=== PATIENT | female | born 1985 | race Caucasian/White ===

== ENCOUNTER 2017-04-06 05:13 | Day surgery (SDC) | payer BC, OTHER ==
[2017-04-05 15:07] VITALS: BMI 36.6
[~2017-04-06 05:13] MED LIST: ceFAZolin SODIUM 1 GM VIAL IVPB ONE
[2017-04-06] MEDS ORDERED: ACETAMINOPHEN 325 MG TABLET (FP) PO PRN (08:07)
[2017-04-06] MEDS ORDERED: IBUPROFEN 800 MG/8 ML IJ IVPB PRN (08:07)
--- NOTE | 2017-04-06 08:08 | HP ---
History & Physical Update - History History: No Change - Physical Physical: No Change - Assessment Assessment: No Change - Plan Plan: No Change (AUB - submucosal leiomyoma - for hysterocopic myomectomy and suction D&C)
[2017-04-06] MEDS ORDERED: PROPOFOL 20 ML ONE (08:13)
[2017-04-06] MEDS ORDERED: KETOROLAC TROMETHAMINE 30 MG/1 ML VIAL ONE (08:13)
[2017-04-06] MEDS ORDERED: LIDOCAINE HCL/PF 2% SDV 5ML VIAL ONE (08:13)
[2017-04-06] MEDS ORDERED: MIDAZOLAM HCL 2 MG/2 ML SINGLE DOSE VIAL ONE (08:13)
[2017-04-06] MEDS ORDERED: LACTATED RINGERS SOLUTION 1,000 ML IV SCH (08:15)
[2017-04-06] MEDS ORDERED: DESFLURANE GAS 240 ML BOTTLE IH ONE (08:33)
[2017-04-06] MEDS ORDERED: DEXAMETHASONE SOD PHOSPHATE 4 MG/1 ML VIAL ONE (08:55)
[2017-04-06] MEDS ORDERED: PROMETHAZINE HCL 25 MG/1 ML VIAL IVPUSH PRN (09:12)
[2017-04-06] MEDS ORDERED: ONDANSETRON 4 MG/2 ML VIAL IVPUSH PRN (09:12)
[2017-04-06] MEDS ORDERED: oxyCODONE HCL 5 MG TABLET PO PRN (09:12)
--- NOTE | 2017-04-06 09:40 | OP ---
Operative Note - Note: Operative Date: 04/06/17 Pre-Operative Diagnosis: AUB, submucosal leiomyoma Operation: hysteroscopic myomectomy and polypectomy, suction D&C Findings: approx 1-2cm intracavitary myoma, posterior uterine polyps Post-Operative Diagnosis: Same as Pre-op (and posterior uterine polyp) Surgeon: Renetta Olivares Anesthesiologist/[employer]: Ender Hernandez Anesthesia: General Specimens Removed: endometrial currettings, endometrial polyp Estimated Blood Loss (mls): 20 Operative Report Dictated: Yes
[2017-04-06] MEDS ORDERED: IBUPROFEN 800 MG/8 ML IJ IVPB ONE (09:57)
--- NOTE | 2017-04-06 10:07 | OP ---
DATE OF OPERATION: 04/06/2017 PREOPERATIVE DIAGNOSIS: Abnormal uterine bleeding and submucosal leiomyoma. POSTOPERATIVE DIAGNOSIS: Abnormal uterine bleeding and submucosal leiomyoma with posterior uterine polyps. PROCEDURE: Hysteroscopic resection of submucosal leiomyoma and posterior uterine polyps and suction dilatation and curettage. SURGEON: Renetta Olivares MD RN GYNECOLOGY: None. ANESTHESIA: General by Ender Hernandez MD ESTIMATED BLOOD LOSS: 20 mL. COMPLICATIONS: None. SPECIMENS: Included endometrial polyp, endometrial fibroids, and endometrial curettings sent to Pathology for evaluation. COUNTS: Sponge and instrument counts were reported to be correct. DISPOSITION: Stable to PACU. BRIEF HISTORY AND PROCEDURE: Patient is a 31-year-old female who had been seen in the office complaining of abnormal uterine bleeding. The patient had an ultrasound which showed a submucosal leiomyoma. The patient was counseled on her options and elected to undergo a hysteroscopic resection of this leiomyoma. The patient was brought to [facility] on April 06, 2017. Consents for the procedure, which had been signed in the office, were reconfirmed upon admission. The patient and the surgeon were mutually identified. The patient was then taken back to the operating room where she was given general anesthesia by Dr. Ender Hernandez. She was placed in the dorsal lithotomy position, prepped and draped in the usual sterile fashion, and a hard time-out was performed. A speculum was placed inside the vagina, and the anterior lip of the cervix was grasped with a tenaculum. The cervix was dilated to accommodate an operative hysteroscope, which was advanced to the fundus. Bilateral tubal ostia were appreciated. A posterior uterine polyp was noted, which was partially resected with the resectoscope. A 1-2-cm fibroid was noted to be intracavitary. It was also removed at this time with polyp forceps as it had already been detached spontaneously and in the uterine cavity at this time. A suction dilatation and curettage was performed, and one final inspection with the hysteroscope revealed no uterine perforation or uterine trauma, and all the polyps and fibroids had appeared to be removed. All instruments were removed from the vagina at this time. Sponge and instrument counts were reported as correct. Patient tolerated the procedure well and was recovering in stable condition at the time of this dictation in the PACU. RENETTA OLIVARES DO /[id number] MTDD
[2017-04-06 11:03] VITALS: TEMP 98
[2017-04-06] MEDS ORDERED: oxyCODONE HCL 5 MG TABLET ONE (12:08)
[2017-04-06 14:33] VITALS: BP 112/64; PULSE 68
--- NOTE | 2017-04-09 12:44 | PATH ---
Surgical Pathology Report Patient Name: RAOUL GARDNER [facility]. Rec. #: [id number] /Age/Gender: 1985 (Age: 31) / F Account: [id number] Location: [facility] Taken: 04/06/2017 Received: 04/06/2017 Reported: 04/09/2017 Physicians: Renetta Olivares M.D. Specimen(s) Received A: ENDOMETRIAL CURETTINGS B: ENDOMETRIAL POLYPS Clinical History Endometrial polyp, abnormal uterine bleeding Final Diagnosis A. ENDOMETRIUM, CURETTAGE: FRAGMENTS OF ENDOMETRIAL POLYP WITH INFARCTION AND HEMORRHAGE. FRAGMENTS OF BENIGN ENDOCERVICAL TISSUE. FRAGMENTS OF BENIGN SQUAMOUS EPITHELIUM. B. ENDOMETRIAL POLYPS: POLYPOID FRAGMENTS OF INACTIVE ENDOMETRIUM. SCANT FRAGMENTS OF BENIGN SMOOTH MUSCLE. SCANT FRAGMENTS OF BENIGN ENDOCERVICAL TISSUE CLOTTED BLOOD. Electronically Signed Fransisco Wray M.D. Gross Description A. Received in formalin labeled "endometrial curettings" is a 2.7 x 1.4 x 0.9 cm red-brown tissue possible representing a polyp or a blood clot. Also received within the same container is a 2.0 x 2.0 x 0.3 cm aggregate of weinstein-brown soft tissue fragments. The possible polyp is trisected and the specimen is entirely submitted in 3 cassettes as follows: 1-soft tissue fragments; 2-3-one whole trisected possible polyp B. Received in formalin labeled "endometrial polyp" is a 0.8 x 0.7 x 0.2 cm aggregate of weinstein brown soft tissue fragments. The formalin is filtered and the specimen is entirely submitted in one cassette. 04/06/201704/06/2017
== END 2017-04-06 13:40 | disposition home or self-care (01) ==
LOC: JASU-SURG 05:13
PROVIDERS: ATTEND Obstetrics & Gynecology
PROC: 0UB98ZZ Excision of Uterus, Via Natural or Artificial Opening Endoscopic (ICD-10-PCS; 2017-04-06)
PROC: 0UB98ZX Excision of Uterus, Via Natural or Artificial Opening Endoscopic, Diagnostic (ICD-10-PCS; principal; 2017-04-06 08:00)
PROC: 0UDB8ZX Extraction of Endometrium, Via Natural or Artificial Opening Endoscopic, Diagnostic (ICD-10-PCS; 2017-04-06 08:00)
DX: N93.9 Abnormal uterine and vaginal bleeding, unspecified (principal); D25.0 Submucous leiomyoma of uterus; N84.0 Polyp of corpus uteri
CPT/HCPCS: 88305-TC; 94760

== ENCOUNTER 2023-05-14 17:10 | Emergency (ER) | payer BC, OTHER ==
[2023-05-14 17:20] VITALS: BP 112/59; PULSE 73; RESP 16; TEMP 98.2; BMI 39.8
[2023-05-14] MEDS ORDERED: KETOROLAC TROMETHAMINE 30 MG/1 ML VIAL IVPUSH ONE (18:34)
[2023-05-14] MEDS ORDERED: ACETAMINOPHEN 1000 MG/100 ML BAG IVPB ONE (18:34)
[2023-05-14] MEDS ORDERED: ACETAMINOPHEN INJECTION 100 ML IVPB ONE (18:42)
[2023-05-14] MEDS ORDERED: KETOROLAC TROMETHAMINE 30 MG/1 ML VIAL ONE (18:42)
[2023-05-14 18:48] LABS: BASO % 0.5 % (0-2.0); EOS % 0.8 % (0-4.5); LYMPH % 21.4 % (8-40); MCH 26.5 pg (25.7-33.7); MCHC 32.5 g/dl (32.0-36.0); MEAN CELL VOLUME 81.6 fl (80-96); MONO % 7.7 % (3.8-10.2); NEUT % 69.6 % (42.8-82.8); PLATELET COUNT 220 10^3/uL (134-434); RBC 4.53 M/mm3 (3.60-5.2); RDW 14.2 % (11.6-15.6); WHITE BLOOD COUNT 6.5 K/mm3 (4.0-10.0)
[2023-05-14 19:08] LABS: CALCIUM 8.8 mg/dL (8.5-10.1)
[2023-05-14 19:09] LABS: BLOOD UREA NITROGEN 12.8 mg/dL (7-18)
[2023-05-14 19:12] LABS: CREATININE 0.9 mg/dL (0.55-1.3)
== END 2023-05-14 19:58 | disposition home or self-care (01) ==
LOC: JER 17:10
PROC: 3E033NZ Introduction of Analgesics, Hypnotics, Sedatives into Peripheral Vein, Percutaneous Approach (ICD-10-PCS; principal; 2023-05-14)
PROC: 3E0333Z Introduction of Anti-inflammatory into Peripheral Vein, Percutaneous Approach (ICD-10-PCS; 2023-05-14)
DX: R07.89 Other chest pain (principal)
CPT/HCPCS: 36415; 80048; 84484; 85025; 93005; 93010; 99284-25